=== PATIENT | male | born 1980 | race Caucasian/White ===

== ENCOUNTER 2022-12-02 18:19 | Emergency (ER) | payer OTHER, SELFPAY ==
[2022-12-02 18:31] VITALS: BP 125/83; PULSE 129; RESP 16; TEMP 36.8; O2SAT 99
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
== END 2022-12-02 19:06 | disposition home or self-care (01) ==
PROVIDERS: Emergency Provider Nurse Practitioner Family
DX: L73.9 Follicular disorder, unspecified (principal); K13.0 Diseases of lips; X19.XXXA Contact with other heat and hot substances, initial encounter; F14.90 Cocaine use, unspecified, uncomplicated
CPT/HCPCS: 99213; G0463

== ENCOUNTER 2022-12-09 11:32 | Emergency (ER) | payer OTHER, SELFPAY ==
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
[2022-12-09 11:46] VITALS: BP 133/78; PULSE 126; RESP 16; TEMP 37.2; O2SAT 100
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
[2022-12-09 13:10] VITALS: PULSE 104; O2SAT 98
== END 2022-12-09 13:10 | disposition home or self-care (01) ==
PROVIDERS: Emergency Provider Nurse Practitioner
DX: S63.601A Unspecified sprain of right thumb, initial encounter (principal); V18.4XXA Pedal cycle driver injured in noncollision transport accident in traffic accident, initial encounter; S61.001A Unspecified open wound of right thumb without damage to nail, initial encounter; G40.909 Epilepsy, unspecified, not intractable, without status epilepticus
CPT/HCPCS: 73130; 99213; G0463

== ENCOUNTER 2022-12-23 03:27 | Emergency (ER) | payer OTHER, SELFPAY ==
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
[2022-12-23 03:32] VITALS: BP 134/84; PULSE 115; RESP 15; TEMP 37.1; O2SAT 99
[2022-12-23 04:19] VITALS: BP 136/86; PULSE 122; RESP 18; O2SAT 100
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
[2022-12-23 04:43] LABS: Barbiturate Screen Urine Negative (Negative); Benzodiazepines Screen Urine Negative (Negative)
[2022-12-23 04:44] LABS: Cannabinoid Screen Urine Positive (Negative); Cocaine Screen Urine Negative (Negative); Methadone Screen Urine Negative (Negative); Opiate Screen Urine Negative (Negative); Phencyclidine Screen Urine Negative (Negative)
[2022-12-23 05:02] VITALS: BP 154/92; PULSE 120; RESP 15; O2SAT 98
[2022-12-23 05:25] LABS: Amphetamine Screen Urine Positive (Negative)
== END 2022-12-23 05:04 | disposition home or self-care (01) ==
PROVIDERS: Emergency Provider Emergency Medicine
DX: F15.10 Other stimulant abuse, uncomplicated (principal); M25.561 Pain in right knee; M25.571 Pain in right ankle and joints of right foot; M79.671 Pain in right foot; V19.9XXA Pedal cyclist (driver) (passenger) injured in unspecified traffic accident, initial encounter
CPT/HCPCS: 73562; 73610; 73630; 80307; 99284

== ENCOUNTER 2022-12-28 11:58 | Emergency (ER) | payer OTHER, SELFPAY ==
--- NOTE | 2022-12-28 12:00 | ED.SKABFB ---
HPI - Skin/Abscess/Foreign Bdy General Chief complaint: Skin/Abscess/Foreign Body Stated complaint: Insect Bites Time Seen by Provider: 12/28/22 12:00 Source: patient Mode of arrival: ambulatory Limitations: no limitations History of Present Illness HPI narrative: Patient is a 42-year-old male who presents with bug bites to lower extremities. Patient states they have been there for about 1 month and reports they are itchy so he scratches the thumb causing them to scab that he picked the scab. Patient does use illicit substances. Patient reports [place] Patient states he does go to the bathroom and washed his legs daily. Has been prescribed antibiotic ointment but was unable to get it filled due to insurance problems. Denies any numbness or tingling to lower extremities denies any fever, chills, redness or warmth to wounds. Related Data Allergies Allergy/AdvReac Type Severity Reaction Status Date / Time cyclobenzaprine Allergy Mild rash Verified 12/28/22 12:04 Review of Systems Review of Systems: All systems reviewed & are unremarkable except as noted in HPI and below Constitutional: Constitutional: Denies body ache(s), Denies chills, Denies fatigue, Denies fever(s), Denies headache(s), Denies malaise and Denies weakness Eyes: Eyes: Denies blurry vision, Denies irritation and Denies loss of vision ENT: Denies otalgia, Denies headache(s), Denies nasal discharge, Denies sinus pain and Denies sore throat Cardiovascular: Cardiovascular: Denies chest pain, Denies irregular heart rhythm and Denies dyspnea Respiratory: Respiratory: Denies dyspnea Gastrointestinal: Gastrointestinal: Denies abdominal pain, Denies melena, Denies hematochezia, Denies diarrhea, Denies nausea and Denies vomiting Musculoskeletal: Musculoskeletal: Denies back pain, Denies myalgias and Denies arthralgias Integumentary/Breasts: Skin/Breast: Denies pruritus, Reports lesions and Denies rash Neurologic: Denies headache(s), Denies loss of vision and Denies weakness Psychiatric: Psychiatric: Reports no additional psychiatric complaints Endocrine: Endocrine: Denies fatigue PMFSH Past Medical History Medical History Seizure disorder Comments At time of signature, agree with nursing past medical, surgical, social and family history. There is no relevant family history pertinent to the presenting complaint. Exam Const: General: cooperative, healthy appearing, comfortable, no acute distress and well nourished Nutritional Appearance: well nourished Orientation/consciousness: patient oriented x3 Limitations: no limitations HENMT: Head: normal to inspection, normocephalic and atraumatic Ears: hearing grossly normal bilaterally and external ears normal Face/Nose/Sinus: Normal external nose present, normal facial exam and face symmetric Face and sinus: normal facial exam and face symmetric Mouth: Yes lip normal Eyes: General: appearance normal, both eyes and all related structures Alignment and Position: alignment normal and position normal Periorbital: periorbital findings normal Eyelids: eyelids normal Pupils: Equal, round and reactive pupils present EOM: EOMs intact bilaterally Neck: Neck: normal visual inspection, full ROM and supple Chest: Chest palpation & inspection: normal inspection of the chest Resp: Effort & Inspection: normal respiratory effort and able to speak in complete sentences Auscultation: clear to auscultation bilaterally Cardio: Rate: regular rate Rhythm: regular rhythm Heart sounds: S1 normal heart sound present and S2 normal heart sound present GI: Inspection: normal to inspection Skin: General skin exam: normal color and no rashes or lesions noted Lesions: lesion noted (Diffuse over bilateral lower legs) bilateral lower leg size (0.5), borders well-defined, color red, morphology round and surface dry and other (Scabbed); nontende
[2022-12-28 12:08] VITALS: BP 148/90; PULSE 114; RESP 16; TEMP 36.5; O2SAT 100
== END 2022-12-28 12:19 | disposition home or self-care (01) ==
PROVIDERS: Emergency Provider Nurse Practitioner Family
DX: S80.862A Insect bite (nonvenomous), left lower leg, initial encounter (principal); S80.861A Insect bite (nonvenomous), right lower leg, initial encounter; W57.XXXA Bitten or stung by nonvenomous insect and other nonvenomous arthropods, initial encounter
CPT/HCPCS: 99213; G0463

== ENCOUNTER 2023-02-28 18:44 | Inpatient (IN) | payer OTHER, SELFPAY ==
--- NOTE | ~2023-02-28 | CT_ITS ---
EXAMINATION: CT chest abdomen pelvis wo con DATE: 02/28/2023 21:00 INDICATION: Areas of bruising on the chest and abdomen TECHNIQUE: Transaxial computed tomographic images of the chest, abdomen, and pelvis were obtained wit hout intravenous contrast. The dose-length product (DLP) was 705.08 mGy-cm. Automated exposure contro l and iterative reconstruction technique were employed. COMPARISON: None FINDINGS: CHEST CT: There is mild dependent atelectasis. No pleural effusion or pneumothorax. No pathologically enlarged thoracic lymph nodes are identified. The heart size is normal. Calcified pulmonary nodules and calcif ied right hilar lymph nodes are consistent with old granulomatous disease. ABDOMEN/PELVIS CT: The stomach is distended. A large volume of colonic stool is present. The liver, spleen, pancreas, ga llbladder, and adrenal glands are normal. The kidneys are unremarkable. No pathologically enlarged ab dominal or pelvic lymph nodes are identified. There is mildly distended small bowel in the pelvis. No free intraperitoneal gas is identified. IMPRESSION: 1. No acute cardiopulmonary abnormality. 2. Constipation, distended stomach, and mildly distended small bowel in the pelvis, likely ileus. Reviewed, dictated and finalized at location F. IMPRESSION: 1. No acute cardiopulmonary abnormality. 2. Constipation, distended stomach, and mildly distended small bowel in the pel vis, likely ileus.
--- NOTE | ~2023-02-28 | XR_ITS ---
EXAMINATION: XR hand RT min 3V INDICATION: Right hand pain TECHNIQUE: Three views of the right hand are obtained. COMPARISON: 12/09/2022 FINDINGS: No fracture, dislocation, or subluxation. The bones, soft tissues, and joint spaces are nor mal. IMPRESSION: 1. No acute osseous abnormality. Reviewed, dictated and finalized at location F.
--- NOTE | ~2023-02-28 | CT_ITS ---
EXAMINATION: CT brain wo con INDICATION: Transient alteration of awareness COMPARISON: 09/16/2004 TECHNIQUE: Standard unenhanced head CT. The dose-length product (DLP) was 681.00 mGy-cm. The mA was a djusted according to patient size. Iterative reconstruction technique was employed. FINDINGS: No intracranial hemorrhage, acute infarction, or abnormal mass lesion. The ventricles are n ormal. No abnormal mass effect or midline shift. The helms-white matter differentiation is normal. The basal cisterns are patent. The orbits are normal. The paranasal sinuses, mastoids and calvarium are normal. IMPRESSION: 1. No acute intracranial abnormality. Reviewed, dictated and finalized at location F.
--- NOTE | ~2023-02-28 | CT_ITS ---
EXAMINATION: CT facial & cervical spine wo DATE: 02/28/2023 21:00 INDICATION: Head injury, facial trauma TECHNIQUE: Computed tomography (CT) of the maxillofacial region and cervical spine was performed with out intravenous contrast. The dose-length product (DLP) was 517.87 mGy-cm. Automated exposure control and iterative reconstruction technique were employed. COMPARISON: None FINDINGS: MAXILLOFACIAL CT: No facial bone fracture is identified. There is a polyp or mucous retention cyst of the right maxilla ry sinus. There is a small right mastoid effusion. CERVICAL SPINE CT: Bone alignment is normal. There is no fracture. There is mild loss of intervertebral disc space heigh t at C5-6. The odontoid process is intact. There is moderate facet and uncovertebral joint osteoarthr itis at C5-6. There is moderate central canal stenosis at C5-6. The prevertebral soft tissues are nor mal. IMPRESSION: 1. No facial fracture identified. 2. Moderate cervical spondylosis without acute findings. Reviewed, dictated and finalized at location F.
--- NOTE | ~2023-02-28 | XR_ITS ---
EXAMINATION: XR hip BI 2V w AP pelvis DATE: 02/28/2023 20:47 INDICATION: Hip pain TECHNIQUE: AP view of the pelvis and two views of each hip were obtained. COMPARISON: None. FINDINGS: Bone alignment is normal. There is no fracture. The joint spaces are maintained. There is a phlebolith of the left pelvis. IMPRESSION: 1. No acute osseous abnormality. Reviewed, dictated and finalized at location F.
--- NOTE | ~2023-02-28 | XR_ITS ---
EXAMINATION: XR forearm LT 2V INDICATION: Left forearm bruising TECHNIQUE: Two views of the left forearm are obtained. COMPARISON: 11/20/2011 FINDINGS: There are surgical changes in the scaphoid. No acute fracture is identified. Alignment at t he wrist and elbow is normal. The soft tissues are unremarkable. IMPRESSION: 1. No acute osseous abnormality. Reviewed, dictated and finalized at location F.
[2023-02-28 18:50] VITALS: BP 97/74; PULSE 112; RESP 18; TEMP 36.6; O2SAT 98
[2023-02-28 19:06] VITALS: PULSE 104
--- NOTE | 2023-02-28 19:29 | ECG_ITS ---
Measurements Intervals [place] Rate: 102 P: 74 SC: 160 QRS: 64 QRSD: 76 T: 60 QT: 298 QTc: 389 Interpretive Statements SINUS TACHYCARDIA BASELINE ARTIFACT- I, II, AVR, AVL, AVF, V1 BORDERLINE ECG NO PREVIOUS ECG AVAILABLE FOR COMPARISON Electronically Signed On 03-01-2023 6:30:16 CDT by Joshua Ramos D.O.
[2023-02-28 20:08] VITALS: BP 107/67; PULSE 107; RESP 12; O2SAT 100
[2023-02-28 20:27] LABS: Hematocrit 46.6 % (42.0-52.0); Mean Corpuscular HGB Conc 32.2 g/dl (32-36); Mean Corpuscular Hemoglobin 30.5 pg (26-34); Mean Corpuscular Volume 94.7 fl (80-100); Mean Platelet Volume 9.8 fl (7.4-10.4); Platelet Count Result 367 k/mm3 (150-375); Red Blood Count 4.92 M/mm3 (4.6-6.20); Red Cell Distribution Width 12.6 % (11.5-14.5); White Blood Count 18.7 K/mm3 (4.5-10.0)
[2023-02-28 20:35] LABS: Ethanol < 10 mg/dL (<10)
[2023-02-28 20:36] LABS: Lactic Acid Reflex 2.1 mmol/L (0.7-2.0)
[2023-02-28 20:39] LABS: Alanine Aminotransferase 72 U/L (6-50); Albumin Level 4.2 g/dL (3.5-5.1); Alkaline Phosphatase 55 U/L (38-126); Anion Gap 9 mmol/L (8-16); Aspartate Amino Transferase 717 U/L (17-59); Bilirubin,Total 0.6 mg/dL (0.2-1.3); Blood Urea Nitrogen 42 mg/dL (9-20); Calcium 7.8 mg/dL (8.4-10.2); Carbon Dioxide 25 mmol/L (22-30); Chloride 100 mmol/L (98-107); Estimated CRCL calculation 34 ml/min; Estimated Glomerular Filt Rate 25; Glucose 153 mg/dL (65-110); Magnesium 2.2 mg/dL (1.6-2.3); Potassium 6.5 mmol/L (3.4-5.0); Sodium 134 mmol/L (137-145)
[2023-02-28 20:54] LABS: Anisocytosis 1+ (NORMAL); Band Neutrophils Percent 4 % (0-6); Large Platelets Present; Lymphocytes Absolute Manual 1.68 K/mm3 (1.1-4.5); Monocytes Absolute Manual 1.12 K/mm3 (0.1-0.90); Monocytes Percent Manual 6 % (3-9); Neutrophils Absolute Manual 15.89 K/mm3 (1.3-6.7); Neutrophils Percent Manual 81 % (46-73); Platelet Estimate Adequate (Adequate); Schistocytes None Seen (NORMAL); Total Cells Counted 100
[2023-02-28] MEDS: SODIUM POLYSTYRENE SULFONONATE 15 GM/60 ML BTL 30 GM PO (21:14)
[2023-02-28] MEDS: SODIUM BICARBONATE 8.4% 50 MEQ/50 ML SYRINGE IV PUSH (21:14)
[2023-02-28] MEDS: CALCIUM GLUCONATE 1,000 MG/10 ML VIAL 1000 MG IV PUSH (21:14)
[2023-02-28] MEDS: SODIUM CHLORIDE 0.9% IV 1,000 ML 999 ML IV CONT ×2 (21:15→22:32)
[2023-02-28] MEDS: INSULIN HUMAN REGULAR (*BKC) 100 UNITS/ML 10 UNITS IV PUSH (21:15)
[2023-02-28] MEDS: DEXTROSE 50% 25 GM/50 ML SYRINGE IV PUSH (21:25)
[2023-02-28 22:00] LABS: Creatine Kinase > 16000 U/L (55-170)
[2023-02-28 22:05] LABS: Appearance Urine Cloudy (Clear); Bacteria Urine None Seen /hpf; Bilirubin Urine Negative (Negative); Blood Urine 3+ (Negative); Color Urine Dark Yellow (Yellow); Glucose Urine UA Negative (Negative); Hyaline Casts Urine Present /lpf; Ketones Urine Trace mg/dL (Negative); Leukocyte Esterase Ur 1+ LEU/UL (Negative); Nitrate Urine Negative (Negative); Protein Urine 2+ mg/dL (Negative); RBC Urine 51-100 /hpf (0-2); Specific Grav Ur 1.019 (1.001-1.035); Squamous Epithelial Cell Urine None seen /hpf (Few)
[2023-02-28 22:06] LABS: Add Urine Microscopic? YES
[2023-02-28 22:23] LABS: Barbiturate Screen Urine Negative (Negative); Benzodiazepines Screen Urine Negative (Negative)
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
[2023-02-28 22:57] LABS: Cannabinoid Screen Urine Negative (Negative); Cocaine Screen Urine Negative (Negative); Methadone Screen Urine Negative (Negative); Opiate Screen Urine Negative (Negative); Phencyclidine Screen Urine Negative (Negative)
--- NOTE | 2023-02-28 23:00 | PM.IMHP ---
H&P: HPI History of Present Illness Date/Time: 02/28/23 23:00 Chief Complaint: HURTING ALL OVER Narrative: THIS IS A 42-YEAR-OLD MALE WITH PAST MEDICAL HISTORY SIGNIFICANT FOR AMPHETAMINES DEPENDENCE, PATIENT PRESENTS TO THE EMERGENCY ROOM DUE TO PAIN ALL OVER HER WORKUP TO HIS GIRLFRIEND BEEN DISEASE AFTER OVERDOSE WITH FENTANYL STATES THAT THEY NEVER DID FENTANYL BUT THE TRIED. PRELIMINARY WORKUP WAS SIGNIFICANT FOR A CREATININE KINASE OF 16,000, LACTIC ACID OF 2, CREATININE IS 2.8 BUN IS 40 URINALYSIS WITH NUMEROUS WBCS PRESENT WELL AST 700 ALT 70 ALK PHOS 50, POTASSIUM 6.8. PATIENT IS BEEN ADMITTED FOR FURTHER EVALUATION MANAGEMENT AND TREATMENT. EXAMINATION: CT chest abdomen pelvis wo con DATE: 02/28/2023 21:00 INDICATION: Areas of bruising on the chest and abdomen TECHNIQUE: Transaxial computed tomographic images of the chest, abdomen, and pelvis were obtained without intravenous contrast. The dose-length product (DLP) was 705.08 mGy-cm. Automated exposure control and iterative reconstruction technique were employed. COMPARISON: None FINDINGS: CHEST CT: There is mild dependent atelectasis. No pleural effusion or pneumothorax. No pathologically enlarged thoracic lymph nodes are identified. The heart size is normal. Calcified pulmonary nodules and calcified right hilar lymph nodes are consistent with old granulomatous disease. ABDOMEN/PELVIS CT: The stomach is distended. A large volume of colonic stool is present. The liver, spleen, pancreas, gallbladder, and adrenal glands are normal. The kidneys are unremarkable. No pathologically enlarged abdominal or pelvic lymph nodes are identified. There is mildly distended small bowel in the pelvis. No free intraperitoneal gas is identified. IMPRESSION: 1. No acute cardiopulmonary abnormality. 2. Constipation, distended stomach, and mildly distended small bowel in the pelvis, likely ileus. EXAMINATION: CT facial & cervical spine wo DATE: 02/28/2023 21:00 INDICATION: Head injury, facial trauma TECHNIQUE: Computed tomography (CT) of the maxillofacial region and cervical spine was performed without intravenous contrast. The dose-length product (DLP) was 517.87 mGy-cm. Automated exposure control and iterative reconstruction technique were employed. COMPARISON: None FINDINGS: MAXILLOFACIAL CT: No facial bone fracture is identified. There is a polyp or mucous retention cyst of the right maxillary sinus. There is a small right mastoid effusion. CERVICAL SPINE CT: Bone alignment is normal. There is no fracture. There is mild loss of intervertebral disc space height at C5-6. The odontoid process is intact. There is moderate facet and uncovertebral joint osteoarthritis at C5-6. There is moderate central canal stenosis at C5-6. The prevertebral soft tissues are normal. IMPRESSION: 1. No facial fracture identified. 2. Moderate cervical spondylosis without acute findings. EXAMINATION: CT brain wo con ? INDICATION: Transient alteration of awareness ? COMPARISON: 09/16/2004 TECHNIQUE: Standard unenhanced head CT. The dose-length product (DLP) was 681.00 mGy-cm. The mA was adjusted according to patient size. Iterative reconstruction technique was employed. ? FINDINGS: No intracranial hemorrhage, acute infarction, or abnormal mass lesion. The ventricles are normal. No abnormal mass effect or midline shift. The helms-white matter differentiation is normal. The basal cisterns are patent. The orbits are normal. The paranasal sinuses, mastoids and calvarium are normal. ? IMPRESSION: 1. No acute intracranial abnormality. Review of Systems Review of Systems: BODY ACHES AND PAINS MUSCLE PAIN Constitutional: Constitutional: Denies chills, Denies fatigue, Denies fever(s), Denies malaise, Denies night sweats and Denies weakness Eyes: Eyes: Denies change in vision ENT: Denies dysphagia, Denies vertigo, Denies dizziness and Denies odynophagia Cardiovascular: Cardiovasc
[2023-02-28 23:19] VITALS: BP 112/59; PULSE 103; RESP 15; O2SAT 100
[2023-02-28 23:24] LABS: Reflex Lactic Acid Yes or No Add Lactic
[2023-02-28 23:32] LABS: Amphetamine Screen Urine Positive (Negative)
[2023-03-01] VITALS (15 sets, daily range): BP systolic 104–137; BP diastolic 58–82; PULSE 90–127; RESP 14–20; TEMP 36.2–37.5; O2SAT 96–100; BMI 21.9
--- NOTE | 2023-03-01 00:14 | ADMGEN ---
This patient, Missael Rivera, was admitted to IMU Room 214-01. Patient/family oriented to hospital policies and general routines including ID bracelet, bed and alarms, visiting hours, pain management, procedures, bathroom and other care routines, personal items, smoking policy, room service/diet, and visiting hours. Information on how to activate the Rapid Response Team has been discussed. Patient/Family are encouraged to report perceived risks to care and to ask questions if they do not understand what they are told or what they should do.
[2023-03-01 00:34] LABS: Lactic Acid 1.1 mmol/L (0.7-2.0)
[2023-03-01] MEDS: SODIUM CHLORIDE 0.9% IV 1,000 ML 200 ML IV CONT ×2 (01:30→06:52)
[2023-03-01 08:45] LABS: Basophils Percent Auto 0.3 % (0.2-1.2); Eosinophils Absolute Auto 0.1 K/mm3 (0-0.3); Eosinophils Percent Auto 0.4 % (0-4.4); Hematocrit 41.3 % (42.0-52.0); Hemoglobin 13.5 g/dL (14.0-18.0); Immature Granulocyte Absolute 0.07 K/mm3 (0.00-0.031); Immature Granulocyte Percent A 0.4 % (0-0.5); Lymphocytes Absolute Auto 1.71 K/mm3 (0.9-3.2); Lymphocytes Percent Auto 10.9 % (18.3-44.2); Mean Corpuscular HGB Conc 32.7 g/dl (32-36); Mean Corpuscular Hemoglobin 30.5 pg (26-34); Mean Corpuscular Volume 93.4 fl (80-100); Mean Platelet Volume 9.5 fl (7.4-10.4); Monocytes Absolute Auto 1.6 K/mm3 (0.1-0.6); Monocytes Percent Auto 10.4 % (2.6-8.5); Neutrophils Absolute Auto 12.1 K/mm3 (1.3-6.7); Neutrophils Percent Auto 77.6 % (45.5-73.1); Platelet Count Result 278 k/mm3 (150-375); Red Blood Count 4.42 M/mm3 (4.6-6.20); Red Cell Distribution Width 12.4 % (11.5-14.5); White Blood Count 15.7 K/mm3 (4.5-10.0)
[2023-03-01 08:54] LABS: Lactic Acid Reflex 1.1 mmol/L (0.7-2.0)
[2023-03-01 08:55] LABS: Anion Gap 3 mmol/L (8-16); Blood Urea Nitrogen 41 mg/dL (9-20); Calcium 7.5 mg/dL (8.4-10.2); Carbon Dioxide 28 mmol/L (22-30); Chloride 99 mmol/L (98-107); Estimated CRCL calculation 43 ml/min; Estimated Glomerular Filt Rate 32; Glucose 122 mg/dL (65-110); Potassium 4.5 mmol/L (3.4-5.0); Sodium 130 mmol/L (137-145)
[2023-03-01 09:55] LABS: Creatine Kinase > 16000 U/L (55-170)
[2023-03-01] MEDS: ACETAMINOPHEN 325 MG TABLET 650 MG PO ×2 (10:46→20:34)
--- NOTE | 2023-03-01 11:44 | PM.IMPN ---
Progress Note: A&P Assessment and Plan (1) Rhabdomyolysis: Code(s): M62.82 - Rhabdomyolysis Status: Acute Assessment and Plan: Continue IV fluid. Renal functions improving (2) Acute kidney injury: Code(s): N17.9 - Acute kidney failure, unspecified Status: Acute Assessment and Plan: LIKELY TO BE PRE RENAL AZOTEMIA RECEIVING IV FLUIDS Renal function improved (3) Polysubstance abuse: Code(s): F19.10 - Other psychoactive substance abuse, uncomplicated Status: Acute Assessment and Plan: FOLLOW-UP IN OUTPATIENT SETTING (4) UTI (urinary tract infection): Code(s): N39.0 - Urinary tract infection, site not specified Status: Acute Assessment and Plan: IV ROCEPHIN (5) Abnormal LFTs: Code(s): R79.89 - Other specified abnormal findings of blood chemistry Status: Acute Subjective Date/time seen: 03/01/23 11:44 Interval history: Patient reporting generalized body ache Review of Systems Review of Systems: BODY ACHES AND PAINS MUSCLE PAIN Constitutional: Constitutional: Denies chills, Denies fatigue, Denies fever(s), Denies malaise, Denies night sweats and Denies weakness Eyes: Eyes: Denies change in vision ENT: Denies dysphagia, Denies vertigo, Denies dizziness and Denies odynophagia Cardiovascular: Cardiovascular: Denies chest pain, Denies leg edema, Denies radiating jaw, neck or arm pain and Denies palpitations Respiratory: Respiratory: Denies cough Gastrointestinal: Gastrointestinal: Denies abdominal pain, Denies dyspepsia, Denies heartburn, Denies diarrhea, Denies nausea and Denies vomiting Genitourinary: Genitourinary: Denies dysuria Musculoskeletal: Musculoskeletal: Reports myalgias Integumentary/Breasts: Skin/Breast: Reports erythema and Denies rash Neurologic: Denies vertigo, Denies dizziness, Denies focal weakness and Denies Sensory deficit (Neuro) Psychiatric: Psychiatric: Reports no additional psychiatric complaints and Reports as per HPI Endocrine: Endocrine: Denies cold intolerance, Denies fatigue, Denies flushing, Denies heat intolerance, Denies polyphagia, Denies polydipsia and Denies palpitations Hematologic/Lymphatic: Hematologic/Lymphatic: Reports no additional hematologic/lymphatic complaints and Reports as per HPI Allergic/Immunologic: Allergic/Immunologic: Reports no additional allergic/immunologic complaints and Reports as per HPI Exam Const: General: cooperative, comfortable, no acute distress, well developed, ill appearing, patient obtunded, tired appearing and thin Nutritional Appearance: thin Orientation/consciousness: patient oriented x3 HENMT: Head: normal to inspection, normocephalic and atraumatic Ears: hearing grossly normal bilaterally Face/Nose/Sinus: normal facial exam Face and sinus: normal facial exam Eyes: General: appearance normal, both eyes and all related structures Pupils: Equal, round and reactive pupils present EOM: EOMs intact bilaterally Neck: Neck: full ROM, no lymphadenopathy and no JVD Thyroid: thyroid normal Lymphatic: no lymphadenopathy noted Resp: Effort & Inspection: normal respiratory effort and able to speak in complete sentences Auscultation: clear to auscultation bilaterally Cardio: Jugular venous distension: no JVD Rate: regular rate Rhythm: regular rhythm Heart sounds: S1 normal heart sound present and S2 normal heart sound present GI: GI Palp: Yes Soft to palpation and Yes No hepatosplenomegaly present : General: Yes deferred Skin: Rashes: no rashes Wounds: no wounds Other: RED CIRCUMSCRIBED AREAS DISTRIBUTED MAINLY IN LIMBS AND NECK Neuro: General: patient oriented x3 and CN's II-XI intact bilaterally Cranial nerves: Yes CN's II-XII intact bilaterally and Yes Equal, round and reactive pupils present Cognition (Neuro): normal cognition Speech: normal speech Gait exam (Neuro): Unable to assess gait Motor exam (neuro): 5/5 motor streng
[2023-03-01] MEDS: SODIUM CHLORIDE 0.9% IV 1,000 ML 150 ML IV CONT ×3 (12:33→20:29)
--- NOTE | 2023-03-01 14:09 | PC.NURSE ---
This patient, Missael Rivera, was transferred to [ [facility] room 313] on 03/01/23 at 1345. Personal belongings sent with patient. Report given to [ADDY Pardo ]. Appropriate documentation sent with patient.
--- NOTE | 2023-03-01 14:18 | PC.NURSE ---
patient arrived at 1400 into my care from 214, by bed. patient was asleep. IV fluids are running at 150ml/hr, denies pain at this moment, asked about getting a shower soon, I told him I will look at orders and clarify to make sure there is any reason why he shouldn't or couldn't shower. Patient denies any other needs at this time. He is alert and orientated.
[2023-03-01] MEDS: IBUPROFEN 400 MG TABLET 800 MG PO (18:02)
[2023-03-02] VITALS (8 sets, daily range): BP systolic 112–123; BP diastolic 67–85; PULSE 78–104; RESP 14–20; TEMP 36.1–36.8; O2SAT 99–100
[2023-03-02] MEDS: SODIUM CHLORIDE 0.9% IV 1,000 ML 150 ML IV CONT ×2 (03:37→12:12)
[2023-03-02 07:06] LABS: Anion Gap -1 mmol/L (8-16); Blood Urea Nitrogen 24 mg/dL (9-20); Calcium 7.8 mg/dL (8.4-10.2); Carbon Dioxide 31 mmol/L (22-30); Chloride 104 mmol/L (98-107); Estimated CRCL calculation 69 ml/min; Estimated Glomerular Filt Rate 52; Glucose 109 mg/dL (65-110); Potassium 5.1 mmol/L (3.4-5.0); Sodium 134 mmol/L (137-145)
[2023-03-02] MEDS: polyethylene glycoL 3350 17 GM POWD.PACK PO (09:33)
--- NOTE | 2023-03-02 09:40 | P.PNIM_ITS ---
Progress Note: A&P Assessment and Plan (1) Rhabdomyolysis: Code(s): M62.82 - Rhabdomyolysis Status: Acute Assessment and Plan: Continue IV fluid. Renal functions improving (2) Acute kidney injury: Code(s): N17.9 - Acute kidney failure, unspecified Status: Acute Assessment and Plan: LIKELY TO BE PRE RENAL AZOTEMIA RECEIVING IV FLUIDS Renal function improved (3) Polysubstance abuse: Code(s): F19.10 - Other psychoactive substance abuse, uncomplicated Status: Acute Assessment and Plan: FOLLOW-UP IN OUTPATIENT SETTING (4) UTI (urinary tract infection): Code(s): N39.0 - Urinary tract infection, site not specified Status: Acute Assessment and Plan: IV ROCEPHIN (5) Abnormal LFTs: Code(s): R79.89 - Other specified abnormal findings of blood chemistry Status: Acute Subjective Date/time seen: 03/02/23 09:40 Interval history: Still reports generalized body ache Review of Systems Review of Systems: BODY ACHES AND PAINS MUSCLE PAIN Constitutional: Constitutional: Denies chills, Denies fatigue, Denies fever(s), Denies malaise, Denies night sweats and Denies weakness Eyes: Eyes: Denies change in vision ENT: Denies dysphagia, Denies vertigo, Denies dizziness and Denies odynophagia Cardiovascular: Cardiovascular: Denies chest pain, Denies leg edema, Denies radiating jaw, neck or arm pain and Denies palpitations Respiratory: Respiratory: Denies cough Gastrointestinal: Gastrointestinal: Denies abdominal pain, Denies dyspepsia, Denies heartburn, Denies diarrhea, Denies nausea and Denies vomiting Genitourinary: Genitourinary: Denies dysuria Musculoskeletal: Musculoskeletal: Reports myalgias Integumentary/Breasts: Skin/Breast: Reports erythema and Denies rash Neurologic: Denies vertigo, Denies dizziness, Denies focal weakness and Denies Sensory deficit (Neuro) Psychiatric: Psychiatric: Reports no additional psychiatric complaints and Reports as per HPI Endocrine: Endocrine: Denies cold intolerance, Denies fatigue, Denies flushing, Denies heat intolerance, Denies polyphagia, Denies polydipsia and Denies palpitations Hematologic/Lymphatic: Hematologic/Lymphatic: Reports no additional hematologic/lymphatic complaints and Reports as per HPI Allergic/Immunologic: Allergic/Immunologic: Reports no additional allergic/immunologic complaints and Reports as per HPI Exam Const: General: cooperative, comfortable, no acute distress, well developed, ill appearing, patient obtunded, tired appearing and thin Nutritional Appearance: thin Orientation/consciousness: patient oriented x3 HENMT: Head: normal to inspection, normocephalic and atraumatic Ears: hearing grossly normal bilaterally Face/Nose/Sinus: normal facial exam Face and sinus: normal facial exam Eyes: General: appearance normal, both eyes and all related structures Pupils: Equal, round and reactive pupils present EOM: EOMs intact bilaterally Neck: Neck: full ROM, no lymphadenopathy and no JVD Thyroid: thyroid normal Lymphatic: no lymphadenopathy noted Resp: Effort & Inspection: normal respiratory effort and able to speak in complete sentences Auscultation: clear to auscultation bilaterally Cardio: Jugular venous distension: no JVD Rate: regular rate Rhythm: regular rhythm Heart sounds: S1 normal heart sound present and S2 normal he
--- NOTE | 2023-03-02 16:50 | PC.NURSE ---
Patient notified of risks of leaving AMA. Dr. Camarena notified. Follow up instructions given to patient. Patient signed AMA form.
--- NOTE | 2023-03-03 11:10 | PM.DS ---
DS: Admitting Diagnosis Discharge Date 03/02/23 Admitting Diagnosis Rhabdomyolysis DS: Discharge Diagnosis Discharge Diagnosis (1) Rhabdomyolysis: Code(s): M62.82 - Rhabdomyolysis Status: Acute DS: Summary Hospital Course Hospital Course: Patient was admitted with rhabdomyolysis. Started on IV fluids. Patient left AMA Time Spent with Patient Time attestation: Total time spent providing and/or coordinating discharge services: Discharge Plan Discharge Consulting providers: Tee Song Patient Disposition: Left Against Medical Advice Patient Instructions: How to Stop Smoking (GEN) Discharge Medications: No Action No Home Medications Date of admission: 02/28/23 22:41 Primary Care Provider: PHYSICIAN,SALES VICE PRESIDENT Admitting Provider: Gilson Oleary V. Attending physician on admission: Rodolfo Camarena Condition: Stable
== END 2023-03-02 17:45 | disposition left against medical advice (07) | DRG 351 ==
LOC: ANHED 22:40 → ANHIMU 22:54 → ANH3MEDSUR 03-01 13:59
PROVIDERS: Admitting Provider Internal Medicine; Emergency Provider Emergency Medicine; Visit Provider Hospitalist
DX: M62.82 Rhabdomyolysis (principal); N17.9 Acute kidney failure, unspecified; F15.20 Other stimulant dependence, uncomplicated; N39.0 Urinary tract infection, site not specified; E87.5 Hyperkalemia; R79.89 Other specified abnormal findings of blood chemistry
CPT/HCPCS: 36415; 70450; 70486; 71250; 72125; 73090; 73130; 73521; 74176; 80048; 80053; 80307; 81001; 82550; 83605; 83735; 85025; 87086; 93005; 96361; 96374; 96375; 99285; A9270; J0612; J0696; J1815; J7030